=== PATIENT | male | born 1950 | race Caucasian/White ===

== ENCOUNTER 2024-01-03 08:56 | Outpatient (RCR) | payer SELFPAY | END 2024-01-03 23:59 | disposition home or self-care (01) | LOC: RPT 08:56 | PROVIDERS: ATTENDING PHYSICIAN Physician Assistant Surgical; FAMILY PHYSICIAN Orthopaedic Surgery | DX: M25.571 Pain in right ankle and joints of right foot (principal); M79.671 Pain in right foot; Z73.6 Limitation of activities due to disability | CPT/HCPCS: 97110; 97162 ==

== ENCOUNTER 2024-11-03 12:07 | Emergency (ER) | payer OTHER, SELFPAY ==
[2024-11-03 12:11] VITALS: BP 145/71
[2024-11-03 12:32] LABS: % Basophils 0.7 % (0-2); % Eosinophils 1.5 % (0-6); % Immature Granulocytes 0.1 % (0-0.5); % Lymphocytes 38.7 % (20.5-51.1); Absolute Basophils 0.1 10^3/uL (0-0.2); Absolute Eosinophils 0.1 10^3/uL (0-0.7); Absolute Lymphocytes 2.6 10^3/uL (1.2-3.4); Absolute Monocytes 0.5 10^3/uL (0.1-0.6); Absolute Neutrophils 3.5 10^3/uL (1.4-6.5); Hematocrit 44.7 % (39.0-52.0); Hemoglobin 15.2 g/dL (13.0-18.0); Mean Corpuscular Hgb 32.9 pg (27.0-31.0); Mean Corpuscular Volume 96.8 fL (80.0-94.0); Mean Platelet Volume 9.5 fL (7.4-10.4); Nucleated Red Blood Cells % 0 % (-); Platelet Count 194 10^3/uL (130-400); Red Blood Cell Count 4.62 10^6/uL (4.70-6.10); Red Cell Dist. Width 12.9 % (11.5-14.5); White Blood Cell Count 6.7 10^3/uL (4.8-10.8)
[2024-11-03 12:33] LABS: Urine Albumin 1+ (Neg - Trace); Urine Bilirubin Negative (Negative); Urine Character Clear (Clear); Urine Color Yellow; Urine Glucose Negative (Negative); Urine Ketone Negative (Negative); Urine Leukocyte Negative (Negative); Urine Nitrite Negative (Negative); Urine Occult Blood 4+ (Negative); Urine Urobilinogen Negative (Neg - 1+)
[2024-11-03 12:50] LABS: ALT (SGPT) 30 U/L (0-50); AST (SGOT) 27 U/L (17-59); Alkaline Phosphatase 81 U/L (38-126); Blood Urea Nitrogen 16 mg/dl (9-20); Calcium 9.8 mg/dl (8.4-10.2); Carbon Dioxide 28 mmol/L (22-30); Glucose 111 mg/dl (70-99); Lipase 108 U/L (23-300); Potassium 4.6 mmol/L (3.5-5.1); Sodium 141 mmol/L (135-145); Total Bilirubin 0.9 mg/dl (0.2-1.3); Total Protein 7.3 g/dl (6.3-8.2); eGFR > 60.00
[2024-11-03 13:11] LABS: Chloride 102 mmol/L (98-107)
--- NOTE | 2024-11-03 14:07 | ED.GENMED ---
History of Present Illness
General
Chief Complaint: Abdominal Pain
Source: patient
Exam Limitations: none
Time Seen by Provider: 11/03/24 14:00
Nursing documentation reviewed up to this point in time: agreed with
History of Present Illness
History of Present Illness:
74-year-old male with a past medical history as document presents to the emergency room for evaluation of abdominal/flank pain. Patient reports onset of symptoms rather suddenly around 9:30 AM while he was at his desk at work. Pain has been
constant since that time. Reports sharp pain radiates from the right flank towards the right lower abdomen. No clear triggering or relieving factors noted. No injury or trauma noted. No associated nausea, vomiting. No diarrhea or constipation.
Denies any dysuria or gross hematuria. Denies change in frequency. He denies any fevers or chills. He denies similar symptoms in the past. Prior surgical history of umbilical hernia, prostatectomy.
Past History
Past History
ED Past Medical History: None
Social History
Personal:
Living: with family
Review of Systems
Review of Systems
All Other Systems: ROS reviewed and negative except as documented in HPI and ROS
Constitutional: Denies fever or chills
Respiratory: Denies trouble breathing
Cardiac: Denies chest pain
ABD/GI: Reports abdominal pain; Denies nausea, vomiting, diarrhea or constipated
: Reports flank pain; Denies dysuria
Musculoskeletal: Denies neck pain
Neurological: Denies headache
Phy Exam
Physical Exam
Physical Exam:
General: Awake, alert, appears mildly uncomfortable
Head: Normocephalic, atraumatic
Eyes: Conjunctiva normal, sclera anicteric
Throat: Airway intact, handling secretions
Neck: Trachea midline
Lungs: Clear to auscultation bilaterally, no wheezing, rales, rhonchi
Heart: Regular rate and rhythm, no murmurs, gallops, or rubs
Abd: Soft, non distended, nontender, no palpable masses
Back: No CVA tenderness, no tenderness in the thoracic or lumbar spine
Neuro: No gross deficits
Skin: no rash in area of concern
Extremities: No edema in extremities, warm and well-perfused
Scores
Heart Failure Risk
Heart Failure Risk Score: Not Applicable
Heart Score for Chest Pain Patients
STEMI patient?: Not applicable
Withdrawal Assessment of Alcohol
Withdrawal Assessment Completed?: Not applicable
Course
Orders/Labs/Results
Orders:
Orders
11/03/24 12:13
Straight cath- Treatment ONCE
11/03/24 12:22
Complete Blood Count/With Diff Urgent
Comprehensive Metabolic Panel Urgent
Lipase Urgent
Urinalysis Reflex To Culture Urgent
Date Specimen was Collected: 11/03/24
Time Specimen was Collected: 12:13
Urine Microscopic Reflex Cult Urgent
11/03/24 14:01
CT Abd/pel Without Iv Or Oral Urgent
Comment:
Reason For Exam: right flank pain, hematuria
Ketorolac [Toradol] 15 mg IV NOW STA
11/03/24 14:15
0.9% Sodium Chloride 1000 ml [Nss] 1,000 ml IV 125 mls/hr
Abnormal Lab Results
11/03/24
12:22
RBC 4.62 L 10^6/uL
(4.70-6.10)
MCV 96.8 H fL
(80.0-94.0)
MCH 32.9 H pg
(27.0-31.0)
Glucose 111 H mg/dl
(70-99)
Ur Occult Blood Reflex 4+ A
(Negative)
Urine RBC 70-80 A /HPF
(0-2)
Urine Albumin (Reflex) 1+ A
(Neg - Trace)
11/03/24 12:22
11/03/24 12:22
Vital Signs
Initial and Last Documented VS:
Initial Vital Signs
Temp Pulse Resp BP Pulse Ox
36.8 C 74 16 145/71 98
11/03/24 12:11 11/03/24 12:11 11/03/24 12:11 11/03/24 12:11 11/03/24 12:11
Last Documented Vital Signs
Temp Pulse Resp BP Pulse Ox
36.8 C 74 16 145/71 98
11/03/24 12:11 11/03/24 12:11 11/03/24 12:11 11/03/24 12:11 11/03/24 12:11
MDM/Problems Addressed
Differential Diagnosis Includes:
Nephrolithiasis, UTI, cholelithiasis, cholecystitis, appendicitis, musculoskeletal pain
MDM/Problems Addressed:
74-year-old male presents for evaluation of right flank/abdominal pain as described above. Vitals and exam as above. Labs in triage including a CBC and a CMP which showed no clinically significant abnormalities. Lipase normal. Urinalysis
positive for blood no clear infection. Clinically suspect nephrolithiasis but with age and no prior history of kidney stones will check CT abdomen pelvis to confirm diagnosis and evaluate for stone size. Will treat symptomatically and provide
fluids. Will reassess after the above.
CT abdomen pelvis shows 3 mm stone right UVJ with mild hydronephrosis. No signs of sepsis, stone less than 5 mm, pain well-controlled here on reassessment. Reasonable to discharge for trial passage. Started on Flomax, advised NSAIDs and Tylenol
with oxycodone for breakthrough pain. Follow-up with urology and PCP. Provided copy of CT report to follow-up on incidental findings including adrenal nodule. Patient comfortable with this plan. All questions answered.
*Radiology
Radiology exam reviewed: radiology read reviewed
*Pulse Oximetry
Patient hypoxic: no
*Critical Care Note
Total Time (30-74mins, 75-104mins- exclusive of procedures): Not Applicable
Data Reviewed
Review of Other/Old Records Reveals: Labs and Records
Source: patient and records
ED Attending Note
-
Portions of this chart may have been created with voice recognition software.� Occasional wrong word or��sound alike� substitutions may have occurred due to the inherent limitations of voice recognition software.
Discharge Plan
Departure
Patient with high blood pressure during this ER visit?: Yes
Discharge Problem:
Right nephrolithiasis
Instructions: Kidney Stones (DC)
Prescriptions:
New
oxycodone 5 mg tablet
5 mg PO Q8H PRN (Reason: Pain) Qty: 10 0RF
tamsulosin [Flomax] 0.4 mg capsule
0.4 mg PO DAILY Qty: 14 0RF
No Action
rosuvastatin 5 MG tablet
5 mg PO HS
multivitamin Tablet
1 tab PO DAILY
diphenhydramine-acetaminophen [Tylenol PM Extra Strength] 25-500 mg Tablet
1 tab PO HS
sulfamethoxazole-trimethoprim [Bactrim] 400-80 mg tablet
1 tab PO DAILY Qty: 14 0RF
tramadol 50 mg tablet
50 mg PO Q8H PRN (Reason: pain) Qty: 30 0RF
docusate sodium [Colace] 100 mg capsule
100 mg PO BID Qty: 30 0RF
Rx Instructions:
get over the counter
naproxen sodium 550 mg tablet
550 mg PO Q12H Qty: 60 0RF
Referrals:
Santos Musa DO [Family Provider] -
Bubba Duke MD [Active] - Call in 1-3 days for appt (Urology)
Activity Restrictions/Additional Instructions:
Thank you for visiting the Emergency Department at [facility].
1. Please schedule a follow up appointment as directed. Call first thing tomorrow morning to make an appointment.
2. If indicated, please take your medications as instructed and indicated on discharge paperwork.
3. If any of your symptoms do not improve, or persist, or become more severe within 6-12 hours, please return to the emergency department for further care.
4. Please return to the emergency department if you develop a headache, neck pain/stiffness, fever greater than 100.4F, chest pain, shortness of breath, persistent nausea, vomiting, slurred speech, difficulty walking, numbness/tingling, weakness,
signs of infection or any other symptoms that are worrisome to you.
Please call [phone] if you have any questions.
Interventions
Interventions:
*Risk Screen - Suicide Last Done: 11/03/24 12:11
*General Assessment Last Done: 11/03/24 13:58
*Neglect/Abuse Screening Last Done: 11/03/24 12:11
*ED- Fall Risk Assessment Last Done: 11/03/24 13:58
[facility]-Byudsvgq[facility] Assessment Last Done: 11/03/24 13:57
Discharge Date and Time
Print Language: UGANDAN
[2024-11-03] MEDS: NSS 1000 IV (14:14)
[2024-11-03] MEDS: TORADOL 15 MG IV (14:14)
[2024-11-03 14:24] LABS: Urine Mucus Moderate
[2024-11-03 14:26] LABS: Urine Hyaline Cast 0-2 /LPF (0-2); Urine Red Blood Cell 70-80 /HPF (0-2); Urine White Cell 0-2 /HPF (0-5)
== END 2024-11-03 16:18 | disposition home or self-care (01) ==
LOC: EMR 12:07
PROVIDERS: Student in an Organized Health Care Education/Training Program; EMERGENCY PHYSICIAN Emergency Medicine; FAMILY PHYSICIAN Internal Medicine
DX: N13.2 Hydronephrosis with renal and ureteral calculous obstruction (principal); E27.8 Other specified disorders of adrenal gland
CPT/HCPCS: 99284; 96374; 96361; 74176; 80053; 81003; 81015; 83690; 85025